=== PATIENT | male | born 1960 | race Caucasian/White ===

== ENCOUNTER → 2023-09-17 06:21 | Day surgery (SDC) | payer BC, SELFPAY | LOC: GI 06:21 | PROVIDERS: ATTENDING PHYSICIAN Internal Medicine | DX: Z12.11 Encounter for screening for malignant neoplasm of colon (principal); D12.0 Benign neoplasm of cecum; D12.5 Benign neoplasm of sigmoid colon; K64.4 Residual hemorrhoidal skin tags; Z86.010 Personal history of colon polyps | CPT/HCPCS: 45385; 45380; 88305 ==

== ENCOUNTER → 2024-05-20 08:03 | Outpatient (REF) | payer BC, SELFPAY | LOC: HWRCS 08:03 | PROVIDERS: ATTENDING PHYSICIAN Internal Medicine; FAMILY PHYSICIAN Family Medicine | DX: I10 Essential (primary) hypertension (principal); K76.0 Fatty (change of) liver, not elsewhere classified; R68.89 Other general symptoms and signs | CPT/HCPCS: 93306 ==

== ENCOUNTER → 2024-05-27 07:43 | Outpatient (REF) | payer BC, SELFPAY | LOC: PET 07:43 | PROVIDERS: ATTENDING PHYSICIAN Internal Medicine | DX: I10 Essential (primary) hypertension (principal); K76.0 Fatty (change of) liver, not elsewhere classified; R68.89 Other general symptoms and signs | CPT/HCPCS: 78431; A9555; J2785 ==